=== PATIENT | female | born 1995 | race Caucasian/White ===

== ENCOUNTER → 2016-11-29 | Outpatient (CLI) | payer BC | END | disposition disaster alternative care site (69) | LOC: GDIC 11:28 | DX: E11.65 Type 2 diabetes mellitus with hyperglycemia (principal) | CPT/HCPCS: G0108 ==

== ENCOUNTER → 2016-12-11 | Outpatient (CLI) | payer BC | END | disposition disaster alternative care site (69) | LOC: EDSTATUS 12:55 → GDIC 12:57 | DX: E11.65 Type 2 diabetes mellitus with hyperglycemia (principal) | CPT/HCPCS: G0108 ==